=== PATIENT | female | born 1975 | race Two or more races ===

== ENCOUNTER 2019-08-16 12:21 | Emergency (ER) | payer BC, MEDICAID, OTHER, SELFPAY ==
[~2019-08-16] VITALS: Ht 154.9 cm; Wt 59.1 kg
[~2019-08-16 12:21] MED LIST: [UNRECOGNIZED DRUG - CODE] PO; [UNRECOGNIZED DRUG - OTHER] PO
[2019-08-16 13:13] LABS: BASOPHILS % (AUTO) 0.7 % (0-1); EOSINOPHILS # (AUTO) 0.1 X10'3 (0-0.9); HEMOGLOBIN 14.2 g/dl (12.0-16.0); LYMPHOCYTES # (AUTO) 1.7 X10'3 (1.1-4.8); MEAN CORPUSCULAR HEMOGLOBIN 30.2 PG (27.0-31.0); MEAN CORPUSCULAR HGB CONC 33.8 g/dL (33.0-36.5); MEAN CORPUSCULAR VOLUME 89.5 FL (78-98); MEAN PLATELET VOLUME 8.3 FL (7.4-10.4); MONOCYTES # (AUTO) 0.4 X10'3 (0-0.9); MONOCYTES % (AUTO) 5.7 % (2-12); NEUTROPHILS # (AUTO) 4.8 X10'3 (1.8-7.7); NEUTROPHILS % (AUTO) 68.6 % (42-75); PLATELET COUNT 265 X10'3 (140-440); RED CELL DISTRIBUTION WIDTH 13.1 % (11.5-14.5)
[2019-08-16] MEDS ORDERED: normal saline 1000ML IV soln IVB ONE (13:15)
[2019-08-16] MEDS ORDERED: ondansetron/PF 4mg/2ml inj IV ONE (13:15)
[2019-08-16] MEDS ORDERED: morphine 4 MG/ML inj SYRINge IV PRN (13:15)
[2019-08-16 13:19] LABS: CLARITY,URINE SLIGHTLY CLOUDY (Clear); COLOR,URINE YELLOW (Yellow); GLUCOSE, URINE NEGATIVE (Neg); KETONES,URINE NEGATIVE (Neg); LEUKOCYTE ESTERASE ,URINE NEGATIVE (Neg); NITRITES, URINE NEGATIVE (Neg); OCCULT BLOOD,URINE SMALL (Neg); PH,URINE 5.5 (4.8-8.0); PROTEIN,URINE NEGATIVE (Neg); UROBILINOGEN,URINE 0.2 E.U/dL (0.2-1.0)
[2019-08-16 13:20] LABS: UA COLLECTION TYPE CLN CATCH MIDSTREAM
[2019-08-16 13:21] LABS: URINE HCG NEGATIVE (NEG)
[2019-08-16 13:26] LABS: BACTERIA,URINE FEW /HPF (Neg); CAL OXALATE CRYSTALS FEW /HPF (NEGATIVE); MUCUS STRANDS FEW /LPF (Neg); RBC,URINE 0-2 /HPF (0-2); SQUAMOUS EPITHELIAL CELL,UR FEW /LPF (FEW)
[2019-08-16 13:27] LABS: WBC,URINE 0-4 /HPF (0-4)
[2019-08-16 13:35] LABS: ALANINE AMINOTRANSFERASE 16 U/L (12-78); ALBUMIN/GLOBULIN RATIO 0.9 (1.1-1.5); ALKALINE PHOSPHATASE 71 IU/L (46-116); ANION GAP 11 (8-16); ASPARTATE AMINO TRANSFERASE 13 U/L (10-37); BILIRUBIN,TOTAL 0.4 MG/DL (0.1-1.0); BLOOD UREA NITROGEN 10 MG/DL (7-18); BUN/CREATININE RATIO 11.6 (6.6-38.0); CHLORIDE 104 MMOL/L (99-107); CREATININE 0.86 MG/DL (0.40-0.90); GLUCOSE 100 MG/DL (70-104); POTASSIUM 3.7 MMOL/L (3.5-5.1); SODIUM 138 MMOL/L (135-145); TOTAL CARBON DIOXIDE 22.8 MMOL/L (24-32); TOTAL PROTEIN 8.7 G/DL (6.4-8.2); eGFR 72 ML/MIN
[2019-08-16 14:00] LABS: LIPASE 75 U/L (73-393)
[2019-08-16] MEDS: ketorolac trometh. 30mg/ml inj. IV ONE ×2 (14:05→14:14)
[2019-08-16] MEDS ORDERED: iohexol 300mg/ml 100ml inj. ONE (14:15)
[2019-08-16] MEDS ORDERED: ketorolac trometh. 30mg/ml inj. IV ONE (14:20)
--- NOTE | 2019-08-16 14:21 | NUR ---
Note irena in ED - 08/16/19 at 1423 by PRADEEP RESERVATIONS AGENT DONE WITH THE PT .PT RESTING IN BED ,NO DISTRESS NOTED .ASSIGNED NURSE ON BREAK RGT NOW.
[2019-08-16] MEDS ORDERED: ONDA4TAB6 PO (15:05)
[2019-08-16] MEDS ORDERED: TRAM50TA2 PO (15:06)
[2019-08-16 15:51] VITALS: BP 93/61
== END 2019-08-16 15:58 | disposition home or self-care (01) ==
LOC: ER 12:21
DX: R10.32 Left lower quadrant pain (principal); R10.84 Generalized abdominal pain; Z79.899 Other long term (current) drug therapy
CPT/HCPCS: 36415; 74177; 80053; 81001; 81025; 83690; 85025; 85610; 96374; 96375; 99284; J1885; J2270; J2405; J7030; Q9967